=== PATIENT | female | born 1990 | race Asian ===

== ENCOUNTER 2017-02-03 01:27 | Emergency (ER) | payer OTHER ==
[2017-02-03 03:46] VITALS: BP 121/76
== END 2017-02-03 03:46 | disposition home or self-care (01) ==
LOC: ED 01:27
DX: F15.90 Other stimulant use, unspecified, uncomplicated (principal); R07.9 Chest pain, unspecified

== ENCOUNTER 2017-05-14 02:39 | Inpatient (IN) | payer OTHER ==
[~2017-05-14] VITALS: Ht 162.6 cm; Wt 48.5 kg
[2017-05-14 03:40] LABS: BASOPHIL % 0.6 % (0-2); PLATELET COUNT 345 x10^3mcL (130-400); RED CELL DISTRIBUTION WIDTH 13.6 % (11.5-14.5)
[2017-05-14 03:50] LABS: CALCIUM 8.5 mg/dL (8.5-10.1); CARBON DIOXIDE 29.2 mmol/L (21-32); CHLORIDE SERUM 105 mmol/L (98-107); CREATININE SERUM 0.9 mg/dL (0.6-1.0); GFR1 > 60 mL/min; GLUCOSE SERUM 93 mg/dL (74-106); POTASSIUM SERUM 3.4 mmol/L (3.5-5.1); SODIUM SERUM 141 mmol/L (136-145)
[2017-05-14 03:57] LABS: ALBUMIN 3.8 g/dL (3.4-5.0); ALKALINE PHOSPHATASE 50 U/L (46-116); ALT/SGPT 17 U/L (14-59); AST/SGOT 17 U/L (15-37); BILIRUBIN TOTAL 0.2 mg/dL (0.20-1.00); LIPASE 138 IU/L (73-393); TOTAL PROTEIN, SERUM 7.6 g/dL (6.4-8.2)
[2017-05-14 05:30] LABS: UA SPECIFIC GRAVITY 1.025 (1.005-1.035); microscopic required? YES; urine erythrocyte 1+ (NEGATIVE)
[2017-05-14 05:38] LABS: AMPHETAMINE QUAL UR POSITIVE (NEG <=1000)
[2017-05-14 06:03] LABS: CHOLESTEROL/HDL RATIO 1.5; MAGNESIUM 2.1 mg/dL (1.8-2.4); PHOSPHOROUS 2.8 mg/dL (2.5-4.9)
[2017-05-14 06:09] LABS: T3 TOTAL 0.78 ng/mL
[2017-05-14 06:13] LABS: FREE T4 1.05 ng/dL (0.76-1.46); FREE THYROXINE INDEX 2.2 ug/dL (1.4-4.5); T4(THYROXINE) 5.8 ug/dL (4.7-13.3)
[2017-05-14 06:18] VITALS: BP 116/76
[2017-05-14 14:02] VITALS: BP 113/78
[2017-05-14 17:25] VITALS: BP 108/70
[2017-05-14 21:34] VITALS: BP 100/73
[2017-05-15 05:47] VITALS: BP 99/62
[2017-05-15 07:32] LABS: BASOPHIL % 0.7 % (0-2); PLATELET COUNT 284 x10^3mcL (130-400); RED CELL DISTRIBUTION WIDTH 13.6 % (11.5-14.5)
[2017-05-15 08:00] LABS: CALCIUM 8.3 mg/dL (8.5-10.1); CHLORIDE SERUM 107 mmol/L (98-107); CREATININE SERUM 0.9 mg/dL (0.6-1.0); GFR1 > 60 mL/min; GLUCOSE SERUM 84 mg/dL (74-106); POTASSIUM SERUM 4.1 mmol/L (3.5-5.1); SODIUM SERUM 138 mmol/L (136-145)
[2017-05-15 09:39] VITALS: BP 93/56
[2017-05-15] MEDS ORDERED: COL100 PO (09:44)
[2017-05-15 11:40] VITALS: BP 93/56
[2017-05-17 14:37] VITALS: Ht 162.6 cm; Wt 48.5 kg
== END 2017-05-15 12:20 | disposition home or self-care (01) | DRG 203 ==
LOC: ED 02:39 → DU 04:16
PROVIDERS: Emergency Medicine; Family Medicine; ADMIT Family Medicine
DX: M94.0 Chondrocostal junction syndrome [Tietze] (principal); N39.0 Urinary tract infection, site not specified; I25.2 Old myocardial infarction; F17.210 Nicotine dependence, cigarettes, uncomplicated; F15.10 Other stimulant abuse, uncomplicated; E87.6 Hypokalemia; D64.9 Anemia, unspecified
CPT/HCPCS: 83880; 84439; J0696; J7030; Q0092

== ENCOUNTER 2017-07-29 19:50 | Emergency (ER) | payer OTHER ==
[~2017-07-29 19:50] MED LIST: COL100 PO
== END 2017-07-29 20:49 | disposition left against medical advice (07) ==
LOC: ED 19:50
DX: Z53.21 Procedure and treatment not carried out due to patient leaving prior to being seen by health care provider (principal)